=== PATIENT | male | born 1970 | race African-American/Black ===

== ENCOUNTER 2019-12-25 20:04 | Emergency (ER) | payer BC, SELFPAY ==
[2019-12-25] MEDS ORDERED: Ondansetron PF 4 MG/2 ML Vial ONE (20:37)
[2019-12-25] MEDS ORDERED: Ketorolac Tromethamine 30 MG/ML VIAL ONE (20:45)
[2019-12-25 21:05] LABS: ALT (SGPT) 183 U/L (8-55); AST (SGOT) 100 U/L (5-34); Albumin 4.4 g/dL (3.5-5.0); Alkaline Phosphatase 116 U/L (40-110); Anion Gap 15 mmol/L (10-20); BUN (Urea Nitrogen) 14 mg/dL (8.9-20.6); Calc. Creatinine Clearance 0 mL/min (70-130); Calcium 9.5 mg/dL (7.8-10.44); Carbon Dioxide 22 mmol/L (22-29); Chloride 106 mmol/L (98-107); Estimated GFR-MDRD Greater than 90; Globulin 3.6 g/dL (2.4-3.5); Glucose 136 mg/dL (70-105); Sodium 139 mmol/L (136-145)
[2019-12-25 21:13] LABS: Hemoglobin 16.5 g/dL (14.0-18.0); Mean Corpuscular HGB CONC 32.7 g/dL (32.0-36.0); Mean Corpuscular Hemoglobin 31.5 pg (27.0-31.0); Mean Corpuscular Volume 96.3 fL (78.0-98.0); RBC Distribution Width 11.9 % (11.5-14.5); Red Blood Cell (RBC) Count 5.26 mill/uL (4.70-6.10)
[2019-12-25 21:28] LABS: #Lymphocytes 0.9 thou/uL (1.20-3.40); #Monocytes 0.5 thou/uL (0.11-0.59); #Neutrophils 9.2 thou/uL (1.40-6.50); %Basophils 0.3 % (0.0-1.0); %Eosinophils 0.2 % (0.0-10.0); %Lymphocytes 8.3 % (21.0-51.0); %Monocytes 4.9 % (0.0-10.0); %Neutrophils 86.3 % (42.0-75.0); Mean Platelet Volume 8.7 fL (7.4-10.4); Platelet Count 136 thou/uL (130-400); RBC Morphology Normal; White Blood Cell (WBC) Count 10.6 thou/uL (4.8-10.8)
== END 2019-12-25 23:45 | disposition home or self-care (01) ==
LOC: ERS 20:04
DX: R11.2 Nausea with vomiting, unspecified (principal); T36.95XA Adverse effect of unspecified systemic antibiotic, initial encounter; Z21 Asymptomatic human immunodeficiency virus [HIV] infection status; I10 Essential (primary) hypertension; F41.9 Anxiety disorder, unspecified; F32.9 Major depressive disorder, single episode, unspecified
CPT/HCPCS: 36415; 80053; 84484; 85025; 93005; 96372; 96374; 96375; J0500; J1885; J2405